=== PATIENT | male | born 1935 | race Caucasian/White ===

== ENCOUNTER → 2019-06-18 | Outpatient (CLI) | payer OTHER, BC | LOC: HYPER 08:56 | DX: L97.812 Non-pressure chronic ulcer of other part of right lower leg with fat layer exposed (principal); I87.2 Venous insufficiency (chronic) (peripheral); L03.115 Cellulitis of right lower limb; R60.9 Edema, unspecified; L30.8 Other specified dermatitis; M17.0 Bilateral primary osteoarthritis of knee; I10 Essential (primary) hypertension; E78.2 Mixed hyperlipidemia; I25.10 Atherosclerotic heart disease of native coronary artery without angina pectoris; I48.91 Unspecified atrial fibrillation; M10.9 Gout, unspecified; E66.9 Obesity, unspecified; F17.290 Nicotine dependence, other tobacco product, uncomplicated; Z68.33 Body mass index [BMI] 33.0-33.9, adult; Z79.01 Long term (current) use of anticoagulants; Z79.82 Long term (current) use of aspirin; Z98.41 Cataract extraction status, right eye; Z98.42 Cataract extraction status, left eye; Z95.1 Presence of aortocoronary bypass graft ==

== ENCOUNTER → 2019-07-02 | Outpatient (CLI) | payer OTHER, BC | LOC: HYPER 10:02 | DX: L97.812 Non-pressure chronic ulcer of other part of right lower leg with fat layer exposed (principal); I87.2 Venous insufficiency (chronic) (peripheral); L03.115 Cellulitis of right lower limb; L30.8 Other specified dermatitis; L84 Corns and callosities; M17.0 Bilateral primary osteoarthritis of knee; I10 Essential (primary) hypertension; E78.2 Mixed hyperlipidemia; E66.9 Obesity, unspecified; I25.10 Atherosclerotic heart disease of native coronary artery without angina pectoris; I48.91 Unspecified atrial fibrillation; M10.9 Gout, unspecified; F17.290 Nicotine dependence, other tobacco product, uncomplicated; Z68.33 Body mass index [BMI] 33.0-33.9, adult; Z98.41 Cataract extraction status, right eye; Z98.42 Cataract extraction status, left eye; Z79.01 Long term (current) use of anticoagulants; Z79.82 Long term (current) use of aspirin ==

== ENCOUNTER → 2019-07-16 | Outpatient (CLI) | payer OTHER, BC | LOC: HYPER 09:18 | DX: L97.812 Non-pressure chronic ulcer of other part of right lower leg with fat layer exposed (principal); I87.2 Venous insufficiency (chronic) (peripheral); L03.115 Cellulitis of right lower limb; L30.8 Other specified dermatitis; L84 Corns and callosities; M17.0 Bilateral primary osteoarthritis of knee; I10 Essential (primary) hypertension; E78.2 Mixed hyperlipidemia; I25.10 Atherosclerotic heart disease of native coronary artery without angina pectoris; I48.91 Unspecified atrial fibrillation; M10.9 Gout, unspecified; E66.9 Obesity, unspecified; F17.290 Nicotine dependence, other tobacco product, uncomplicated; Z68.33 Body mass index [BMI] 33.0-33.9, adult; Z98.41 Cataract extraction status, right eye; Z98.42 Cataract extraction status, left eye; Z79.01 Long term (current) use of anticoagulants ==

== ENCOUNTER → 2019-08-06 | Outpatient (CLI) | payer OTHER, BC | LOC: HYPER 12:12 | DX: L97.812 Non-pressure chronic ulcer of other part of right lower leg with fat layer exposed (principal); L03.115 Cellulitis of right lower limb; L30.8 Other specified dermatitis; R60.9 Edema, unspecified; E78.2 Mixed hyperlipidemia; E66.9 Obesity, unspecified; I87.2 Venous insufficiency (chronic) (peripheral); I10 Essential (primary) hypertension; I25.10 Atherosclerotic heart disease of native coronary artery without angina pectoris; M17.11 Unilateral primary osteoarthritis, right knee; M17.12 Unilateral primary osteoarthritis, left knee; M10.9 Gout, unspecified; F17.200 Nicotine dependence, unspecified, uncomplicated; Z79.01 Long term (current) use of anticoagulants; Z98.41 Cataract extraction status, right eye; Z98.42 Cataract extraction status, left eye ==

== ENCOUNTER → 2019-08-20 | Outpatient (CLI) | payer OTHER, BC | LOC: HYPER 11:59 | DX: L03.115 Cellulitis of right lower limb (principal); L97.812 Non-pressure chronic ulcer of other part of right lower leg with fat layer exposed; L30.8 Other specified dermatitis; E66.01 Morbid (severe) obesity due to excess calories; E78.2 Mixed hyperlipidemia; R60.9 Edema, unspecified; I87.2 Venous insufficiency (chronic) (peripheral); I10 Essential (primary) hypertension; I25.10 Atherosclerotic heart disease of native coronary artery without angina pectoris; I48.91 Unspecified atrial fibrillation; M19.90 Unspecified osteoarthritis, unspecified site; M10.9 Gout, unspecified; M17.11 Unilateral primary osteoarthritis, right knee; M17.12 Unilateral primary osteoarthritis, left knee; F17.200 Nicotine dependence, unspecified, uncomplicated; Z68.33 Body mass index [BMI] 33.0-33.9, adult; Z79.01 Long term (current) use of anticoagulants; Z98.41 Cataract extraction status, right eye; Z98.42 Cataract extraction status, left eye; Z68.34 Body mass index [BMI] 34.0-34.9, adult ==

== ENCOUNTER → 2020-01-29 | Outpatient (CLI) | payer OTHER, BC | LOC: HYPER 15:08 | PROVIDERS: ATTEND Emergency Medicine | DX: L03.115 Cellulitis of right lower limb (principal); I87.2 Venous insufficiency (chronic) (peripheral); R60.0 Localized edema; L84 Corns and callosities; I10 Essential (primary) hypertension; N40.0 Benign prostatic hyperplasia without lower urinary tract symptoms; E78.2 Mixed hyperlipidemia; I25.10 Atherosclerotic heart disease of native coronary artery without angina pectoris; M19.90 Unspecified osteoarthritis, unspecified site; I48.91 Unspecified atrial fibrillation; M10.9 Gout, unspecified; E66.9 Obesity, unspecified; F17.290 Nicotine dependence, other tobacco product, uncomplicated; Z68.32 Body mass index [BMI] 32.0-32.9, adult; Z79.01 Long term (current) use of anticoagulants; Z98.41 Cataract extraction status, right eye; Z98.42 Cataract extraction status, left eye; Z95.5 Presence of coronary angioplasty implant and graft; Z90.89 Acquired absence of other organs ==